=== PATIENT | male | born 1980 | race Caucasian/White ===

== ENCOUNTER 2019-06-26 20:23 | Emergency (ER) | payer OTHER ==
[~2019-06-26] VITALS: Ht 182.9 cm; Wt 81.2 kg
[2019-06-26 20:27] VITALS: BP 137/76
--- NOTE | 2019-06-26 20:30 | NUR ---
TO LOBBY A/W BED AMBULATORY
--- NOTE | 2019-06-26 21:09 | NUR ---
38M C/O 06/24 BACK PAIN RADIATING FORWARD TO EPIGASTRIUM ASSOCIATED WITH WITH BL FINGERS NUMBNESS X 2-3 HOURS. DENIES TRAUMA TO BACK. SENSATION TO FINGERS INTACT. ACTIVE BOWEL SOUNDS. PATIENT IS AMBULATORY WITH STEADY GAIT. Addendum: 06/26/19 at 2109 by KALEE DENIES N/V/D/FEVER
--- NOTE | 2019-06-26 21:20 | NUR ---
Vahid solomon in ED - 06/26/19 at 2144 by KALEE PATIENT LEFT WITHOUT BEING SEEN BY DR. LOYD. NO FURTHER CARE PROVIDED FOR PATIENT. PATIENT AMBULATED OUT.
[2019-06-26 21:30] VITALS: BP 137/76
--- NOTE | 2019-06-26 21:30 | NUR ---
PATIENT LEFT WITHOUT BEING SEEN BY DR. LOYD. NO FURTHER CARE PROVIDED FOR PATIENT. PATIENT AMBULATED OUT.
--- NOTE | 2019-06-26 21:30 | NUR ---
PATIENT NOT IN CHAIR B, NOT IN BATHROOM. ADMITTING STATES HE WALKED OUT. WILL NOTIFY
== END 2019-06-26 21:30 | disposition left against medical advice (07) ==
LOC: MED 20:23
DX: R10.13 Epigastric pain (principal); Z53.21 Procedure and treatment not carried out due to patient leaving prior to being seen by health care provider